=== PATIENT | female | born 1980 | race Caucasian/White ===

== ENCOUNTER → 2023-05-15 10:51 | Outpatient (REF) | payer OTHER, SELFPAY | LOC: PNTC 10:51 | PROVIDERS: ATTENDING PHYSICIAN Obstetrics & Gynecology | DX: O09.529 Supervision of elderly multigravida, unspecified trimester (principal); O34.219 Maternal care for unspecified type scar from previous cesarean delivery; Z87.59 Personal history of other complications of pregnancy, childbirth and the puerperium | CPT/HCPCS: 76811; 93976 ==

== ENCOUNTER 2023-06-12 16:25 | Observation (INO) | payer OTHER, SELFPAY ==
[2023-06-12 16:40] VITALS: BP 122/70; BMI 27.6
== END 2023-06-12 21:39 | disposition home or self-care (01) ==
LOC: LDRP 16:25
PROVIDERS: ADMITTING PHYSICIAN Obstetrics & Gynecology
DX: R10.9 Unspecified abdominal pain (principal); V49.49XA Driver injured in collision with other motor vehicles in traffic accident, initial encounter; Y93.89 Activity, other specified; Y92.414 Local residential or business street as the place of occurrence of the external cause; O09.522 Supervision of elderly multigravida, second trimester; Z3A.24 24 weeks gestation of pregnancy; O34.219 Maternal care for unspecified type scar from previous cesarean delivery
CPT/HCPCS: 76805; G0378

== ENCOUNTER → 2023-06-29 09:18 | Outpatient (REF) | payer OTHER, SELFPAY | LOC: PNTC 09:18 | PROVIDERS: ATTENDING PHYSICIAN Obstetrics & Gynecology | DX: O09.529 Supervision of elderly multigravida, unspecified trimester (principal); Z87.59 Personal history of other complications of pregnancy, childbirth and the puerperium; O34.219 Maternal care for unspecified type scar from previous cesarean delivery | CPT/HCPCS: 76816; 93976 ==

== ENCOUNTER → 2023-08-21 08:32 | Outpatient (REF) | payer OTHER, SELFPAY | LOC: PNTC 08:32 | PROVIDERS: ATTENDING PHYSICIAN Obstetrics & Gynecology | DX: O09.529 Supervision of elderly multigravida, unspecified trimester (principal); O34.211 Maternal care for low transverse scar from previous cesarean delivery; Z87.59 Personal history of other complications of pregnancy, childbirth and the puerperium | CPT/HCPCS: 76816 ==

== ENCOUNTER → 2023-09-04 07:52 | Outpatient (REF) | payer OTHER, SELFPAY | LOC: PNTC 07:52 | PROVIDERS: ATTENDING PHYSICIAN Obstetrics & Gynecology | DX: O09.529 Supervision of elderly multigravida, unspecified trimester (principal) | CPT/HCPCS: 59025; 76815 ==

== ENCOUNTER → 2023-09-11 07:51 | Outpatient (REF) | payer OTHER, SELFPAY | LOC: PNTC 07:51 | PROVIDERS: ATTENDING PHYSICIAN Obstetrics & Gynecology | DX: O09.529 Supervision of elderly multigravida, unspecified trimester (principal) | CPT/HCPCS: 59025; 76815 ==

== ENCOUNTER 2023-09-15 17:56 | Observation (INO) | payer OTHER, SELFPAY ==
[2023-09-15 18:12] VITALS: BP 129/89; BMI 30.8
== END 2023-09-15 18:44 | disposition home or self-care (01) ==
LOC: LDRP 17:56
PROVIDERS: ADMITTING PHYSICIAN Obstetrics & Gynecology; FAMILY PHYSICIAN Obstetrics & Gynecology
DX: O36.8130 Decreased fetal movements, third trimester, not applicable or unspecified (principal); Z3A.37 37 weeks gestation of pregnancy
CPT/HCPCS: 59025; 36415; 86850; 86900; 86901; G0378

== ENCOUNTER → 2023-09-18 07:47 | Outpatient (REF) | payer OTHER, SELFPAY | LOC: PNTC 07:47 | PROVIDERS: ATTENDING PHYSICIAN Obstetrics & Gynecology | DX: O09.529 Supervision of elderly multigravida, unspecified trimester (principal); O09.519 Supervision of elderly primigravida, unspecified trimester | CPT/HCPCS: 59025; 76816 ==

== ENCOUNTER → 2023-09-25 07:52 | Outpatient (REF) | payer OTHER, SELFPAY | LOC: PNTC 07:52 | PROVIDERS: ATTENDING PHYSICIAN Obstetrics & Gynecology | DX: O09.519 Supervision of elderly primigravida, unspecified trimester (principal) | CPT/HCPCS: 59025; 76815 ==

== ENCOUNTER 2023-09-26 07:06 | Inpatient (IN) | payer OTHER, SELFPAY ==
[2023-09-26 07:13] VITALS: BP 145/84; BMI 31.6
[2023-09-26] MEDS: LR 1000 IV ×4 (07:45→20:25)
[2023-09-26 08:02] LABS: % Basophils 0.2 % (0-2); % Eosinophils 0.5 % (0-6); % Lymphocytes 17.3 % (20.5-51.1); % Monocytes 5.7 % (1.7-9.3); % Neutrophils 75.3 % (42.2-75.2); Absolute Eosinophils 0.1 10^3/uL (0-0.7); Absolute Immature Granulocytes 0.1 10^3/uL (0-0.05); Absolute Lymphocytes 1.7 10^3/uL (1.2-3.4); Absolute Monocytes 0.6 10^3/uL (0.1-0.6); Absolute Neutrophils 7.4 10^3/uL (1.4-6.5); Hematocrit 33.7 % (37.0-47.0); Hemoglobin 11.7 g/dL (12.0-16.0); Mean Corp Hgb Conc. 34.7 g/dL (33.0-37.0); Mean Corpuscular Hgb 29.5 pg (27.0-31.0); Mean Corpuscular Volume 85.1 fL (81.0-99.0); Mean Platelet Volume 11.8 fL (7.4-10.4); Nucleated Red Blood Cells % 0 %; Platelet Count 221 10^3/uL (130-400); Red Blood Cell Count 3.96 10^6/uL (4.20-5.40); Red Cell Dist. Width 14.6 % (11.5-14.5); White Blood Cell Count 9.8 10^3/uL (4.8-10.8)
[2023-09-26] MEDS: PENICILLIN 110 UNITS IV (08:13)
[2023-09-26 08:29] LABS: ALT (SGPT) 18 U/L (0-35); AST (SGOT) 29 U/L (14-36); Albumin 3.5 g/dl (3.5-5.0); Alkaline Phosphatase 162 U/L (38-126); Blood Urea Nitrogen 10 mg/dl (7-17); Calcium 9.4 mg/dl (8.4-10.2); Carbon Dioxide 20 mmol/L (22-30); Chloride 106 mmol/L (98-107); Estimated Creatinine Clearance 114 ml/min; Glucose 102 mg/dl (70-99); Sodium 135 mmol/L (135-145); Total Bilirubin 0.2 mg/dl (0.2-1.3); Total Protein 6.2 g/dl (6.3-8.2); eGFR > 60.00
[2023-09-26] MEDS: SUBLIMAZE 100 MCG EPIDURAL (08:41)
[2023-09-26] MEDS: FENTANYL/BUPIVACAINE 100 EPIDURAL ×2 (08:41→16:36)
[2023-09-26] MEDS: PENICILLIN 55 UNITS IV ×3 (12:41→20:25)
[2023-09-26] MEDS: PITOCIN 30 UNITS/NSS 500 ML IV ×2 (21:24→23:20)
[2023-09-27] MEDS: PENICILLIN IV (01:43)
[2023-09-27 06:04] LABS: Hemoglobin 10.9 g/dL (12.0-16.0)
[2023-09-27] MEDS: SENOKOT-S 1 TABLET PO (08:33)
[2023-09-27] MEDS: MOTRIN 600 MG PO ×2 (16:30→22:45)
[2023-09-28] MEDS: MOTRIN 600 MG PO (05:47)
[2023-09-29 15:57] LABS: Syphilis/T. pallidum Ab Reflex Negative (Negative)
== END 2023-09-28 11:45 | disposition home or self-care (01) | DRG 806 ==
LOC: LDRP 07:06
PROVIDERS: ADMITTING PHYSICIAN Obstetrics & Gynecology; ATTENDING PHYSICIAN Obstetrics & Gynecology
PROC: 10E0XZZ Delivery of Products of Conception, External Approach (ICD-10-PCS; 2023-09-26)
DX: O34.219 Maternal care for unspecified type scar from previous cesarean delivery (principal); O98.82 Other maternal infectious and parasitic diseases complicating childbirth; Z37.0 Single live birth; B95.1 Streptococcus, group B, as the cause of diseases classified elsewhere; O76 Abnormality in fetal heart rate and rhythm complicating labor and delivery; Z3A.39 39 weeks gestation of pregnancy
CPT/HCPCS: 80053; 85014; 85018; 85025; 86780; 86850; 86900; 86901

== ENCOUNTER → 2024-12-05 13:13 | Outpatient (REF) | payer OTHER, SELFPAY | LOC: RAD 13:13 | PROVIDERS: ATTENDING PHYSICIAN Obstetrics & Gynecology; FAMILY PHYSICIAN Family Medicine | DX: O46.90 Antepartum hemorrhage, unspecified, unspecified trimester (principal) | CPT/HCPCS: 76801; 76817 ==